=== PATIENT | male | born 1930 | race Caucasian/White ===

== ENCOUNTER 2016-11-21 11:15 | Emergency (ER) | payer OTHER | END 2016-11-21 11:20 | disposition left against medical advice (07) | LOC: ER 11:15 | DX: M79.646 Pain in unspecified finger(s) (principal); Z53.21 Procedure and treatment not carried out due to patient leaving prior to being seen by health care provider ==

== ENCOUNTER 2016-11-22 09:25 | Emergency (ER) | payer OTHER ==
[~2016-11-22] VITALS: Ht 172.7 cm; Wt 77.1 kg
[2016-11-22 10:16] VITALS: BP 161/56
== END 2016-11-22 11:16 | disposition home or self-care (01) ==
LOC: ER 09:25
DX: S60.012A Contusion of left thumb without damage to nail, initial encounter (principal); W20.8XXA Other cause of strike by thrown, projected or falling object, initial encounter; Y93.89 Activity, other specified; Y99.8 Other external cause status; Y92.89 Other specified places as the place of occurrence of the external cause
CPT/HCPCS: 73140